=== PATIENT | female | born 1955 | race Caucasian/White ===

== ENCOUNTER 2016-11-28 06:49 | Emergency (ER) | payer BC ==
[~2016-11-28] VITALS: Ht 160 cm; Wt 67.0 kg
[2016-11-28 06:49] VITALS: TEMP 98; Ht 160 cm; Wt 67.0 kg
[~2016-11-28 06:49] MED LIST: IBUPROFEN; PROC-14 PO; ZANTAC
--- OUTSIDE RECORDS SUMMARY | 2016-11-28 06:54 | XMS REPORT ---
Author Author Karen Lyle Organization [employer] Address Unknown Phone Unavailable Care Team Providers Care Registered Nurse [facility] Name Role Phone Karen Lyle CP Unavailable Allergies No Known Allergies Problems Problem Type Condition Code Onset Dates Condition Status Problem Allergic rhinitis 477.9 Active Medications No Known Medications Results No Known Results Summary Purpose [employer] Submission
--- OUTSIDE RECORDS SUMMARY | 2016-11-28 06:54 | XMS REPORT ---
Author Author Karen Lyle Organization [employer] Address Unknown Phone Unavailable Care Team Providers Care Laborer [facility] Name Role Phone Karen Lyle CP Unavailable Allergies, Adverse Reactions, Alerts Substance Reaction Event Type N.K.D.A. Info Not Available Non Drug Allergy Problems Problem Type Condition ICD-9 Code Onset Dates Condition Status Assessment Allergic rhinitis 477.9 Active Problem Allergic rhinitis 477.9 Active Medications Medication Code System Code Instructions Start Date End Date Status Dosage Ibuprofen [facility] [place] [address]-81 200 MG Orally every 6 hrs 1 tablet as needed Zantac [facility] [place] [address]-72 150 MG Orally once a day 1 tablet Procedures Procedure Coding System Code Date OFFICE VISIT, EST-LOW COMPLEXITY (15 MIN.) CPT-4 [id number] November 11, 2014 Vital Signs Date/Time: November 11, 2014 Height 63.5 in Weight 143.8 lbs Temperature 98.5 F Blood Pressure Diastolic 82 mm Hg Blood Pressure Systolic 124 mm Hg Cardiac Monitoring Heart Rate 64 /min BMI 25.07 Index Respiratory Rate 16 /min Results No Known Results Summary Purpose [employer] Submission
[2016-11-28] MEDS ORDERED: ASPIRIN 81 MG CHEWABLE TABLET PO ONE (07:00)
[2016-11-28] MEDS ORDERED: NITROGLYCERIN 0.4 MG SUBLINGUAL TABLET SL PRN (07:00)
--- NOTE | 2016-11-28 07:00 | NUR ---
PHYSICIAN VISIT DR. CONNELLY IN TO SEE PATIENT.
--- NOTE | 2016-11-28 07:09 | ERPDOC ---
Departure Disposition Decision Date: Nov 28, 2016 Disposition Decision Time: 10:04 Disposition: 01 DISCHARGED HOME, SELF-CARE Impression Impression Impression: Primary Impression: Epigastric pain Additional Impression: Gastritis Gastritis type: unspecified gastritis Chronicity: acute Gastritis bleeding : without bleeding Qualified Codes: K29.00 - Acute gastritis without bleeding Severity: Mild Condition: Improved Seen By: Physician only Referrals: YOLANDE VALLE MD Call for appointment SIDRA LUX MD, FACS, CWS Call for appointment Patient Instructions: Epigastric Pain (ED), Gastritis (ED) Problems/Meds/Labs Reviewed?: Yes Medications reviewed and manag: Yes Departure Forms: Return to Work/School Permit Return to Work/School Date: Nov 30, 2016 Follow up care ordered?: Yes Mental Status: Alert, Oriented Scripts Pantoprazole Sodium (Protonix) 40 Mg Tablet.dr 40 MG PO ACB for ACID REFLUX for 30 Days, #30 TAB 0 Refills Take 1 tablet, by mouth, one time a day before breakfast. Prov: MONSERRAT CONNELLY DO 11/28/16 HPI - Chest Pain General Stated Complaint: CP Time Seen by Provider: 06:55 Source: patient (Patient presents to the ER with a 3-4 day complaint of Epigastric pain, that radiates throughout the chest. Pain similar to prior ER visit for Gastritis. ) Exam Limitations: no limitations HPI - Chest Pain Occurred At: home Onset/Timing: Changing over time Duration: 1 week Pain/Severity Scale: Now & Worst: Unable to Rate Activities at Onset/Context: rest Location: epigastric Quality: burning Modifying Factors: IMPROVES WITH: other (none) Associated Symptoms: denies symptoms Chest Pain Radiation: no radiation Nitro Today/Relief: 0.4 mg x 1, provided by ED Aspirin Treatment Today: 325 mg x 1, provided by ED Prior Chest Pain/Cardiac Marco: no prior cardiac workup Hx of Similar Symptoms: Yes Allergies: Coded Allergies: No Known Drug Allergies (Unverified Adverse Reaction, Unknown, 04/05/15) Past History Past Medical History Pt denies signifigant PMH Hx Echocardiogram: No Surgical History Denies Surgeries Family History Family History: Negative Vaccines Hx Influenza Vaccination: No Hx Pneumococcal Vaccination: No Hx Tetanus Diptheria: Yes Social History Smoking Status: Former smoker Does patient use chewing tobac: No Quit Date: Jun 28, 2016 Substance Use Type: does not use Alcohol Intake: none Housing: house Service: No Occupational Hazard: No Advance Directives: Yes Full Code Record Review Pertinent history updated: Yes Review of Systems Constitutional Constitutional: DENIES: chills, fever Eyes Lids/Accessories: DENIES: erythema, swelling ENMT Ears: DENIES: erythema, pain Balance: DENIES: ataxia, vertigo Sinuses: DENIES: congestion, rhinorrhea Mouth/Throat: DENIES: sore throat Cardiovascular Cardiac: chest pain, DENIES: dyspnea on exertion, orthopnea Rhythm/Rate: DENIES: tachycardia Pulmonary Respiratory: DENIES: cough, dyspnea, sputum GI Upper Abdomen: DENIES: nausea, pain, vomiting Lower Abdomen: DENIES: constipation, diarrhea, pain General: DENIES: dysuria Musculoskeletal General: DENIES: cramps, pain, weakness Integumentary Skin: DENIES: color change, itching, rash Neurological General: DENIES: ataxia, change in strength, headache, numbness, poor coordination, seizures, syncope, vertigo, weakness Psychiatric Psychiatric: DENIES: anxiety, depression, nervousness Hematologic/Lymphatic Hematologic/Lymphatic: DENIES: anemia Allergic/Immunological Allergic/Immunoligical: DENIES: sneezing All other Systems All Other Systems: Reviewed and Negative Physical Exam General General Nourishment: well nourished, well developed, appears stated age, adult General Body Habitus: well groomed Vitals and Pain First Documented Vital Signs Date Time Temp Pulse Resp B/P Pulse Ox O2 Delivery O2 Flow Rate FiO2 11/28/16 06:49 98.0 71 15 149/81 100 Room Air Weight: Kilograms: Height (feet): 5 Height (inches): 3 Triage Pain Scale: RN VS reviewed by Provider: Yes Eyes (brief) Eyes Brief: found: EOMI, PERRL ENMT (brief) ENMT Brief: FOUND: TM clear, TM good light reflex, mucosa moist, NOT FOUND: pharnyx erythema Neck (brief) Neck: FOUND: trachea midline, NOT FOUND: adenopathy, tenderness, tracheal deviation Respiratory (brief) Respiratory: FOUND: clear all beltran, equal bilaterally Cardiovascular (brief) Cardiac: FOUND: regular rate, regular rhythm Capillary Refill: <2 sec Pulses: all distal extremities, equal, strong Abdomen (brief) Abdominal Brief: FOUND: bowel normo active x4, soft, NOT FOUND: distended, tender Lymphatic (brief) Lymphatic Brief: NOT FOUND: adenopathy Musculoskeletal (brief) Musculoskeletal Brief: NOT FOUND: spasm, tenderness Integumentary (brief) Integumentary Brief: FOUND: pink, warm Neurologic (brief) Neurological Brief: FOUND: CN w/o gross def to obs, gait w/o gross def to obs, motor-no gross deficits, sensory-no gross deficits, NOT FOUND: ataxia Psychiatric (brief) Psychiatric Brief: FOUND: alert, attentive, normal affect, oriented Differential Diagnoses Considering: Acute MA, Anxiety/Panic, Angina, Biliary Colic, Costochondritis, Esophageal Spasm, GERD, Pericarditis, Pleurisy, Pneumothorax, Pneumonia, Pulmonary Edema, Other Progress Results/Orders Orders Procedure Category Date Status Time Cbc W/Auto LAB 11/28/16 Complete Diff-Reflex Manual 06:55 Bmp - Basic Metabolic LAB 11/28/16 Complete Panel 06:55 Probnp LAB 11/28/16 Complete 06:55 Troponin I W LAB 11/28/16 Complete Hemolysis Index 06:55 INR LAB 11/28/16 Complete 06:55 EKG EKG 11/28/16 Taken 06:55 Chest 1 View RAD 11/28/16 Resulted 06:55 Iv Lock (Ed Only) EDM 11/28/16 Transmitted 06:55 Aspirin (Asa) PHA 11/28/16 Complete 07:00 Nitroglycerin PHA 11/28/16 Complete (Nitrostat) 07:00 Pantoprazole PHA 11/28/16 Complete (Protonix Iv) 07:15 Troponin I W LAB 11/28/16 Complete Hemolysis Index EKG EKG 11/28/16 Taken Lab Results Laboratory Tests Test 11/28/16 07:15 11/28/16 09:36 White Blood Count 7.0T/MM3 Red Blood Count 4.32M/MM3 Hemoglobin 13.6GM/DL Hematocrit 40.5% Mean Corpuscular Volume 93.8UM3 Mean Corpuscular Hemoglobin 31.5UUG Mean Corpuscular Hemoglobin Concent 33.6GM/DL RDW Standard Deviation 41.9FL Platelet Count 201T/MM3 Mean Platelet Volume 10.9UM3 Immature Granulocyte % (Auto) 0.1% Neutrophils (%) (Auto) 60.1% Lymphocytes (%) (Auto) 31.3% Monocytes (%) (Auto) 5.5% Eosinophils (%) (Auto) 2.6% Basophils (%) (Auto) 0.4% Absolute Immature Granulocyte (auto 0.01T/MM3 Absolute Neutrophils (auto) 4.2T/MM3 Absolute Lymphocytes (auto) 2.2T/MM3 Absolute Monocytes (auto) 0.4T/MM3 Absolute Eosinophils (auto) 0.2T/MM3 Absolute Basophils (auto) 0.0T/MM3 Prothromb Time International Ratio 1.06 Turbidity < 20 Sodium Level 145MEQ/L Potassium Level 4.3MEQ/L Chloride Level 109MEQ/L Carbon Dioxide Level 28MEQ/L Anion Gap 8MEQ/L Blood Urea Nitrogen 17.0MG/DL Creatinine 0.9MG/DL Glomerular Filtration Rate Calc 64 BUN/Creatinine Ratio 19RATIO Glucose Level 92MG/DL Calculated Osmolality 281MOSM/KG Calcium Level 10.8MG/DL Icterus Index < 2 Troponin I < 0.012ng/ml < 0.012ng/ml AY-Vcd-B-Type Natriuretic Peptide 175PG/ML Chemistry Specimen Hemolysis < 15 < 15 Medications Current ED Medications Aspirin (ASA) 324 mg O ONCE PO Last administered on 11/28/16 07:21; Start 11/28 at 07:00; Stop 11/28/16 at 07:01; Status DC Nitroglycerin (Nitrostat) 0.4 mg Q5MIN PRN SL CHEST PAIN; Start 11/28/16 at 07: 00; Stop 11/28/16 at 10:48; Status DC Pantoprazole Sodium (Protonix Iv) 40 mg O ONCE IV Last administered on 07:21; Start 11/28/16 at 07:15; Stop 11/28/16 at 07:16; Status DC Progress Progress Patient denies pain, resting comfortably I recommended admission, but the patient refused Patient will agree to repeat cardiac enzymes EKG EKG #1: Rate: 60-100 Rhythm: sinus [place]: normal QRS: normal Intervals: normal ST/T: depressed Interpreted by: signing physician EKG Comments Similar to 04/05/15 EKG #2: Rate: 60-100 Rhythm: sinus [place]: normal QRS: normal Intervals: normal ST/T: depressed Interpreted by: signing physician EKG Comments Similar to earlier EKG EKG ScImage/Picomm EKG interpreted in ScImage/Pic: No Xray Xray : Reason for Exam: Chest Pain Xray: CXR Portable Interpretation: Normal, Reviewed Written Report MONSERRAT CONNELLY DO Nov 28, 2016 07:09
[2016-11-28] MEDS ORDERED: PANTOPRAZOLE 40mg INJECTION IV ONE (07:15)
[2016-11-28 07:30] LABS: BASOPHILS % (AUTO) 0.4 % (0-2); EOSINOPHILS # (AUTO) 0.2 T/MM3 (0-0.5); EOSINOPHILS % (AUTO) 2.6 % (0-4); HCT - HEMATOCRIT 40.5 % (36-46); HGB - HEMOGLOBIN 13.6 GM/DL (12-16); IMMATURE GRANULOCYTE # (AUTO) 0.01 T/MM3 (0.00-0.03); IMMATURE GRANULOCYTE % (AUTO) 0.1 % (0.0-0.5); LYMPHOCYTES # (AUTO) 2.2 T/MM3 (1-4.8); LYMPHOCYTES % (AUTO) 31.3 % (23-45); MEAN CORPUSCULAR HGB 31.5 UUG (26-34); MEAN CORPUSCULAR HGB CONC(MCHC 33.6 GM/DL (31-37); MEAN CORPUSCULAR VOLUME 93.8 UM3 (80-100); MEAN PLATELET VOLUME 10.9 UM3 (9.4-12.4); MONOCYTES # (AUTO) 0.4 T/MM3 (0-0.8); MONOCYTES % (AUTO) 5.5 % (0-9.0); NEUTROPHILS #(AUTO)-ABSOLUTE 4.2 T/MM3 (1.8-7.7); NEUTROPHILS % (AUTO) 60.1 % (33-66); RED BLOOD COUNT 4.32 M/MM3 (4.00-5.20)
[2016-11-28 07:40] LABS: INR 1.06 (0.76-1.04); PROTHROMBIN TIME 11.6 SEC (9.31-12.49)
[2016-11-28 07:43] LABS: ANION GAP 8 MEQ/L (5-15); BUN/CREATININE RATIO 19 RATIO (6-26); CALCIUM 10.8 MG/DL (8.4-10.2); CHLORIDE 109 MEQ/L (98-107); CO2 - CARBON DIOXIDE 28 MEQ/L (22-30); CREATININE 0.9 MG/DL (0.7-1.2); GLOMERULAR FILTRATION RATE 64; GLUCOSE 92 MG/DL (65-110); POTASSIUM 4.3 MEQ/L (3.6-5); SODIUM 145 MEQ/L (134-144)
--- NOTE | 2016-11-28 07:49 | DI ---
Indication: ITS.REASON: chest pain PROCEDURE: CHEST 1 VIEW: Encounter: Initial Comparison: April 05, 2015 FINDINGS: The lungs are clear. There is no abnormal airspace opacity, pleural effusion or pneumothorax identified. The heart size, pulmonary vasculature and mediastinum are within normal limits. No significant skeletal abnormality is seen. IMPRESSION: No acute cardiopulmonary abnormality. .
[2016-11-28 07:55] LABS: PROBNP 175 PG/ML (0-175)
[2016-11-28] MEDS ORDERED: IBUP-1724 PO (09:08)
[2016-11-28] MEDS ORDERED: PANT40TA PO (10:08)
[2016-11-28 10:30] VITALS: BP 138/78; PULSE 68; RESP 16; O2SAT 99
== END 2016-11-28 10:33 | disposition home or self-care (01) ==
LOC: ED 06:49
DX: K29.00 Acute gastritis without bleeding (principal)
CPT/HCPCS: 36415; 71010; 80048; 83880; 84484; 85025; 85610; 93005; 96374; 99284; C9113